=== PATIENT | male | born 1980 | race African-American/Black ===

== ENCOUNTER 2023-04-30 18:03 | Outpatient (CLI) | payer BC, SELFPAY | END 2023-04-30 18:04 | disposition home or self-care (01) | LOC: AMB 05-01 17:27 | PROVIDERS: Visit Provider Family Medicine | DX: R07.89 Other chest pain (principal) | CPT/HCPCS: A0425; A0427 ==

== ENCOUNTER 2023-04-30 18:43 | Emergency (ER) | payer BC, SELFPAY ==
[2023-04-30] VITALS (23 sets, daily range): BP systolic 115–139; BP diastolic 64–86; PULSE 72–96; RESP 16; TEMP 36.3; O2SAT 98–100; BMI 17.7
--- NOTE | 2023-04-30 18:49 | CRLHL7_ITS ---
For Patients: As a result of the Cures Act, medical imaging exams and procedure reports are released immediately into your electronic medical record. You may view this report before your referring provider. If you have questions, please contact your health care provider. INDICATION: Chest pain. TECHNIQUE: Chest 2 views. COMPARISON: None. FINDINGS: Cardiovascular and mediastinum: Cardiomediastinal silhouette is within normal limits Lungs and pleural spaces: Lungs are clear. No sign of pleural effusion. No pneumothorax. Bones and soft tissues: No significant findings. IMPRESSION: No acute or significant findings. Dictated by Geri Akbar MD @ 04/30/2023 8:35:19 PM (Electronically Signed)
--- NOTE | 2023-04-30 18:57 | ED_ITS ---
HPI - Chest Pain General Date Seen: 04/30/23 <Charly Ramos DO - Last Filed: 04/30/23 20:21> Chief Complaint: Chest Pain <Charly Ramos DO - Last Filed: 04/30/23 20:21> Stated Complaint: chest pain <Charly Ramos DO - Last Filed: 04/30/23 20:21> Time Seen by Provider: 04/30/23 18:43 <Charly Ramos DO - Last Filed: 04/30/23 20:21> Source: patient <Chalry Ramos DO - Last Filed: 04/30/23 20:21> Mode of arrival: EMS <Charly Ramos - Last Filed: 04/30/23 20:21> Limitations: no limitations <Charly Ramos DO - Last Filed: 04/30/23 20:21> History of Present Illness HPI narrative: Patient is a 42-year-old male with no pertinent medical problems presenting to emergency department for chest pain. He states the pain started last night and has been consistent in nature. States it is a pressure and tight sensation in his left chest region that does not radiate. Has never had pain like this before. Denies any history of heart disease. Is currently a smoker and smokes about half a pack per day since he was 19. Denies fevers, chills, shortness of breath, dyspnea, abdominal pain, headache lightheadedness, dizziness, fevers, chills. This at home with his brother and mother but denies do them being sick. He is not aware of any sick contacts. Denies any history of cancer, blood clots, recent surgery or trauma. EMS states his vitals were stable for them throughout transfer. He did take a baby aspirin before he came to the emergency department. He is not on any scheduled medications. No other concerns noted at this time <Charly Ramos - Last Filed: 04/30/23 20:21> Related Data Home Medications: Home Medications Medication Instructions Recorded Confirmed No Known Home Medications 04/30/23 04/30/23 <Charly Aniya Ramos DO - Last Filed: 04/30/23 20:21> Allergies/Adverse Reactions: Allergies Allergy/AdvReac Type Severity Reaction Status Date / Time bananas Allergy Unknown Uncoded 04/30/23 18:53 grapes Allergy Unknown Uncoded 04/30/23 18:53 <Charly Ramos DO - Last Filed: 04/30/23 20:21> Review of Systems Status of ROS Reports: 10 or more systems reviewed and unremarkable except as noted in History and below <Charly Ramos DO - Last Filed: 04/30/23 20:21> PFSH PFS Social History: Social History Smoking Status: Current every day smoker What tobacco products do you use: cigarettes Smoking packs per day: 0.5 Smoking cigarettes per day: 10.0 Years smoked: 23 Smoking pack-years: 11.50 How often do you have a drink containing alcohol: monthly or less AUDIT-C Alcohol total score: 1 Non-prescribed substance use: denies use <Charly Ramos DO - Last Filed: 04/30/23 20:21> Exam Narrative Exam Narrative: Const: Well-nourished, Well-developed, in mild distress Eyes: PERRL, no conjunctival injection, and symmetrical lids HENT: Atraumatic external nose and ears. Moist mucous membranes. Neck: Symmetric, trachea midline, No thyromegaly. CVS: RRR, No murmurs or gallops. Peripheral pulses 2+ and equal in all extremities RESP: Unlabored respiratory effort. Clear to auscultation bilaterally. GI: Nontender/Nondistended, No rebound or guarding. MSK:Extremities w/o deformity, Normal Active ROM, no tenderness to palpation of the chest Skin: Warm, Dry. No rashes or lesions. Neuro: Normal Muscle tone, No focal neurological deficits. Psych: Awake, Alert, & Oriented x3. Appropriate mood and affect. <Charly Ramos DO - Last Filed: 04/30/23 20:21> Const Vital Signs, click to edit/add: Vital Signs - 24 hr 04/30/23 18:53 04/30/23 18:53 04/30/23 19:00 Temperature 97.4 F L Pulse Rate 82 86 Pulse Rate [Pulse Oximeter] 94 Respiratory Rate 16 Blood Pressure Blood Pressure [Right Upper Arm] 118/64 Pulse Oximetry 98 98 98 Oxygen Delivery Method Room Air 04/30/23 19:08 04/30/23 19:15 04/30/23 19:22 Temperature Pulse Rate 91 87 87 Pulse Rate [Pulse Oximeter] Respiratory Rate Blood Pressure 116/76 139/79 Blood Pressure [Right Upper Arm] Pulse Oximetry 99 98 98 Oxygen Delivery Method 04/30/23 19:23 04/30/23 19:30 04/30/23 19:42 Temperature Pulse Rate 92 89 86 Pulse Rate [Pulse Oximeter] Respiratory Rate Blood Pressure 120/79 Blood Pressure [Right Upper Arm] Pulse Oximetry 99 98 98 Oxygen Delivery Method 04/30/23 19:45 04/30/23 20:00 04/30/23 20:01 Temperature Pulse Rate 92 96 86 Pulse Rate [Pulse Oximeter] Respiratory Rate Blood Pressure 115/77 Blood Pressure [Right Upper Arm] Pulse Oximetry 98 98 98 Oxygen Delivery Method 04/30/23 20:15 04/30/23 20:22 04/30/23 20:23 Temperature Pulse Rate 92 91 88 Pulse Rate [Pulse Oximeter] Respiratory Rate Blood Pressure 124/81 Blood Pressure [Right Upper Arm] Pulse Oximetry 99 99 99 Oxygen Delivery Method 04/30/23 20:30 04/30/23 20:53 04/30/23 21:00 Temperature Pulse Rate 91 79 73 Pulse Rate [Pulse Oximeter] Respiratory Rate Blood Pressure Blood Pressure [Right Upper Arm] Pulse Oximetry 100 99 99 Oxygen Delivery Method 04/30/23 21:01 04/30/23 21:15 04/30/23 21:23 Temperature Pulse Rate 73 81 72 Pulse Rate [Pulse Oximeter] Respiratory Rate Blood Pressure 117/79 122/73 Blood Pressure [Right Upper Arm] Pulse Oximetry 99 99 100 Oxygen Delivery Method 04/30/23 21:30 Temperature Pulse Rate 78 Pulse Rate [Pulse Oximeter] Respiratory Rate Blood Pressure Blood Pressure [Right Upper Arm] Pulse Oximetry 99 Oxygen Delivery Method <Charly Ramos, DO - Last Filed: 04/30/23 20:21> Vital Signs - 24 hr 04/30/23 18:53 04/30/23 18:53 04/30/23 19:00 Temperature 97.4 F L Pulse Rate 82 86 Pulse Rate [Pulse Oximeter] 94 Respiratory Rate 16 Blood Pressure Blood Pressure [Right Upper Arm] 118/64 Pulse Oximetry 98 98 98 Oxygen Delivery Method Room Air 04/30/23 19:08 04/30/23 19:15 04/30/23 19:22 Temperature Pulse Rate 91 87 87 Pulse Rate [Pulse Oximeter] Respiratory Rate Blood Pressure 116/76 139/79 Blood Pressure [Right Upper Arm] Pulse Oximetry 99 98 98 Oxygen Delivery Method 04/30/23 19:23 04/30/23 19:30 04/30/23 19:42 Temperature Pulse Rate 92 89 86 Pulse Rate [Pulse Oximeter] Respiratory Rate Blood Pressure 120/79 Blood Pressure [Right Upper Arm] Pulse Oximetry 99 98 98 Oxygen Delivery Method 04/30/23 19:45 04/30/23 20:00 04/30/23 20:01 Temperature Pulse Rate 92 96 86 Pulse Rate [Pulse Oximeter] Respiratory Rate Blood Pressure 115/77 Blood Pressure [Right Upper Arm] Pulse Oximetry 98 98 98 Oxygen Delivery Method 04/30/23 20:15 04/30/23 20:22 04/30/23 20:23 Temperature Pulse Rate 92 91 88 Pulse Rate [Pulse Oximeter] Respiratory Rate Blood Pressure 124/81 Blood Pressure [Right Upper Arm] Pulse Oximetry 99 99 99 Oxygen Delivery Method 04/30/23 20:30 04/30/23 20:53 04/30/23 21:00 Temperature Pulse Rate 91 79 73 Pulse Rate [Pulse Oximeter] Respiratory Rate Blood Pressure Blood Pressure [Right Upper Arm] Pulse Oximetry 100 99 99 Oxygen Delivery Method 04/30/23 21:01 04/30/23 21:15 04/30/23 21:23 Temperature Pulse Rate 73 81 72 Pulse Rate [Pulse Oximeter] Respiratory Rate Blood Pressure 117/79 122/73 Blood Pressure [Right Upper Arm] Pulse Oximetry 99 99 100 Oxygen Delivery Method 04/30/23 21:30 Temperature Pulse Rate 78 Pulse Rate [Pulse Oximeter] Respiratory Rate Blood Pressure Blood Pressure [Right Upper Arm] Pulse Oximetry 99 Oxygen Delivery Method <David Edwards MD - Last Filed: 04/30/23 21:39> Course Reevaluation(s) Time of Reevaluation #1: 21:38 <David Edwards MD - Last Filed: 04/30/23 21:39> Reevaluation #1: Repeat troponin is negative. Patient recheck. Complains of left-sided chest pain that is constant say yesterday worse with arm movement of the arm. Symptoms are most consistent with musculoskeletal pain, EKG reassuring, chest x- ray negative, patient is stable for discharge <David Edwards MD - Last Filed: 04/30/23 21:39> Vital Signs Vital signs: Initial Vital Signs Temperature 97.4 F L 04/30/23 18:53 Temperature Source Temporal Artery Scan 04/30/23 18:53 Pulse Rate 82 04/30/23 18:53 Pulse Rhythm Regular 04/30/23 18:53 Respiratory Rate 16 04/30/23 18:53 Blood Pressure 118/64 04/30/23 18:53 Blood Pressure Mean 82 04/30/23 18:53 Blood Pressure Position Sitting 04/30/23 18:53 Pulse Oximetry 98 04/30/23 18:53 Oxygen Delivery Method Room Air 04/30/23 18:53 Vital Signs Temperature 97.4 F L 04/30/23 18:53 Pulse Rate 82 04/30/23 18:53 Respiratory Rate 16 04/30/23 18:53 Blood Pressure 118/64 04/30/23 18:53 Pulse Oximetry 98 04/30/23 18:53 Oxygen Delivery Method Room Air 04/30/23 18:53 Temperature 97.4 F L 04/30/23 18:53 Pulse Rate 78 04/30/23 21:30 Respiratory Rate 16 04/30/23 18:53 Blood Pressure 122/73 04/30/23 21:23 Pulse Oximetry 99 04/30/23 21:30 Oxygen Delivery Method Room Air 04/30/23 18:53 <Charly Ramos DO - Last Filed: 04/30/23 20:21> Initial Vital Signs Temperature 97.4 F L 04/30/23 18:53 Temperature Source Temporal Artery Scan 04/30/23 18:53 Pulse Rate 82 04/30/23 18:53 Pulse Rhythm Regular 04/30/23 18:53 Respiratory Rate 16 04/30/23 18:53 Blood Pressure 118/64 04/30/23 18:53 Blood Pressure Mean 82 04/30/23 18:53 Blood Pressure Position Sitting 04/30/23 18:53 Pulse Oximetry 98 04/30/23 18:53 Oxygen Delivery Method Room Air 04/30/23 18:53 Vital Signs Temperature 97.4 F L 04/30/23 18:53 Pulse Rate 82 04/30/23 18:53 Respiratory Rate 16 04/30/23 18:53 Blood Pressure 118/64 04/30/23 18:53 Pulse Oximetry 98 04/30/23 18:53 Oxygen Delivery Method Room Air 04/30/23 18:53 Temperature 97.4 F L 04/30/23 18:53 Pulse Rate 78 04/30/23 21:30 Respiratory Rate 16 04/30/23 18:53 Blood Pressure 122/73 04/30/23 21:23 Pulse Oximetry 99 04/30/23 21:30 Oxygen Delivery Method Room Air 04/30/23 18:53 <David Edwards MD - Last Filed: 04/30/23 21:39> Medications Administered Medications: Discontinued Medications Generic Name Dose Route Start Last Admin Trade Name Freq PRN Reason Stop Dose Admin Aspirin 243 mg 04/30/23 18:51 04/30/23 19:06 Aspirin 81 Mg Tab.Chew PO 04/30/23 18:52 243 mg ONCE ONE Administration <Charly Ramos DO - Last Filed: 04/30/23 20:21> Discontinued Medications Generic Name Dose Route Start Last Admin Trade Name Freq PRN Reason Stop Dose Admin Aspirin 243 mg 04/30/23 18:51 04/30/23 19:06 Aspirin 81 Mg Tab.Chew PO 04/30/23 18:52 243 mg ONCE ONE Administration <David Edwards MD - Last Filed: 04/30/23 21:39> MDM - Chest Pain MDM Narrative Medical decision making narrative: Patient is a 42-year-old male presenting to the emergency department for left-sided chest pain. Pain started last night and has continued to show a today. Has described it as a tightness sensation that does not radiate. His heart score is 1. He he is PERC negative and PE seems unlikely at this time. Will order chest x-ray to look for signs of pneumonia or pneumothorax. Very unlikely to be her dissection this time concern is otherwise normal vital signs. EKG, troponin, CBC, CMP, ago was has flu/RSV ordered. Patient was given aspirin to get to the full 324. EKG shows what appears to be benign early repolarization otherwise no concerning findings. Initial troponin was 0. CBC and CMP showed no concerning findings. COVID social flu/RSV test were negative. Will repeat his troponin in 2 hours. Patient is signed out to my colleague Dr. Edwards. <Charly Ramos, DO - Last Filed: 04/30/23 20:21> Lab Data Labs: Lab Results 04/30/23 04/30/23 Range/Units 19:02 21:16 WBC 6.45 (4.50-11.00) K/uL RBC 5.70 (4.30-5.90) m/uL Hgb 16.3 (13.5-17.5) gm/dL Hct 48.8 (37.0-53.0) % MCV 86 (80-100) fL MCH 29 (26-34) pg MCHC 33 (32-36) gm/dL RDW Coeff of Leslie 14.1 (11.5-15.5) % Plt Count 289 (140-440) K/uL Neut % (Auto) 71.0 (42.0-72.0) % Lymph % (Auto) 21.2 (20-44) % [place] % (Auto) 5.9 (0.0-11.0) % Eos % (Auto) 1.2 (0.0-7.0) % Baso % (Auto) 0.5 (0.0-3.0) % Neut # (Auto) 4.58 (1.7-7.0) K/uL Lymph # (Auto) 1.37 (0.90-2.90) K/uL [place] # (Auto) 0.40 (0.00-0.90) K/UL Eos # (Auto) 0.08 (0.00-0.50) K/uL Baso # (Auto) 0.03 (0.00-0.30) K/uL Abs Immat Gran (auto) 0.01 (0.00-0.30) K/uL Imm/Tot Granulo (auto) 0.2 % Sodium 138 (135-149) mmol/L Potassium 3.8 (3.6-5.1) mmol/L Chloride 103 (96-114) mmol/L Carbon Dioxide 29 (20-32) mmol/L Anion Gap 6 L (7-15) mEq/L BUN 8 (5-24) mg/dL Creatinine 1.1 (0.5-1.5) mg/dL Estimated Creat Clear 68.04 Estimated GFR 86 ml/min Glucose 96 (60-115) mg/dL Calcium 9.0 (8.4-10.6) mg/dL Total Bilirubin 0.3 (0.1-1.5) mg/dL AST 29 (12-35) U/L ALT 16 (4-50) U/L Alkaline Phosphatase 48 (40-150) U/L Troponin I < 0.01 L (0.01-0.04) ng/mL Total Protein 7.8 (6.0-8.3) g/dL Albumin 4.3 (3.3-5.0) g/dL SARS-CoV-2 (PCR) Negative SARS-CoV-2 (Negative) Influenza Type A (PCR) Negative PCR FLU A (Negative) Influenza Type B (PCR) Negative PCR FLU B (Negative) RSV (PCR) Negative PCR RSV (Negative) POC Troponin I 0.00 L 0.00 L (0.01-0.04) ng/ml <Charly Ramos, DO - Last Filed: 04/30/23 20:21> Lab Results 04/30/23 04/30/23 Range/Units 19:02 21:16 WBC 6.45 (4.50-11.00) K/uL RBC 5.70 (4.30-5.90) m/uL Hgb 16.3 (13.5-17.5) gm/dL Hct 48.8 (37.0-53.0) % MCV 86 (80-100) fL MCH 29 (26-34) pg MCHC 33 (32-36) gm/dL RDW Coeff of Leslie 14.1 (11.5-15.5) % Plt Count 289 (140-440) K/uL Neut % (Auto) 71.0 (42.0-72.0) % Lymph % (Auto) 21.2 (20-44) % [place] % (Auto) 5.9 (0.0-11.0) % Eos % (Auto) 1.2 (0.0-7.0) % Baso % (Auto) 0.5 (0.0-3.0) % Neut # (Auto) 4.58 (1.7-7.0) K/uL Lymph # (Auto) 1.37 (0.90-2.90) K/uL [place] # (Auto) 0.40 (0.00-0.90) K/UL Eos # (Auto) 0.08 (0.00-0.50) K/uL Baso # (Auto) 0.03 (0.00-0.30) K/uL Abs Immat Gran (auto) 0.01 (0.00-0.30) K/uL Imm/Tot Granulo (auto) 0.2 % Sodium 138 (135-149) mmol/L Potassium 3.8 (3.6-5.1) mmol/L Chloride 103 (96-114) mmol/L Carbon Dioxide 29 (20-32) mmol/L Anion Gap 6 L (7-15) mEq/L BUN 8 (5-24) mg/dL Creatinine 1.1 (0.5-1.5) mg/dL Estimated Creat Clear 68.04 Estimated GFR 86 ml/min Glucose 96 (60-115) mg/dL Calcium 9.0 (8.4-10.6) mg/dL Total Bilirubin 0.3 (0.1-1.5) mg/dL AST 29 (12-35) U/L ALT 16 (4-50) U/L Alkaline Phosphatase 48 (40-150) U/L Troponin I < 0.01 L (0.01-0.04) ng/mL Total Protein 7.8 (6.0-8.3) g/dL Albumin 4.3 (3.3-5.0) g/dL SARS-CoV-2 (PCR) Negative SARS-CoV-2 (Negative) Influenza Type A (PCR) Negative PCR FLU A (Negative) Influenza Type B (PCR) Negative PCR FLU B (Negative) RSV (PCR) Negative PCR RSV (Negative) POC Troponin I 0.00 L 0.00 L (0.01-0.04) ng/ml <David Edwards MD - Last Filed: 04/30/23 21:39> ECG Data Attestation: I personally reviewed and interpreted this ECG as follows: <Charly Ramos DO - Last Filed: 04/30/23 20:21> Prior ECG tracings: not available for review <Charly Ramos DO - Last Filed: 04/30/23 20:21> Interpretation: Normal sinus rhythm with rate of 82 beats per minute, normal glucose, normal axis, no T-wave abnormalities. Does appear to have benign early re polarization seen in lead V2. <Charly Ramos - Last Filed: 04/30/23 20:21> Discharge Plan Discharge Clinical Impression: Atypical chest pain <Charly Ramos - Last Filed: 04/30/23 20:21> Patient Disposition: Home, Self-Care <Charly Ramos - Last Filed: 04/30/23 20:21> Condition: Stable <Charly Ramos - Last Filed: 04/30/23 20:21> Instructions: Noncardiac Chest Pain (ED) <Charly Ramos - Last Filed: 04/30/23 20:21> Additional Instructions: Follow-up with the primary care provider symptoms persist. Return to emergency department for new or worsening symptoms <Charly Ramos - Last Filed: 04/30/23 20:21> Prescriptions: No Action No Known Home Medications <Charly Ramos Last Filed: 04/30/23 20:21> Follow Up/Referrals: Provider,Not a Local [Primary Care Provider] - <Charly Ramos Last Filed: 04/30/23 20:21> Stand Alone Forms: MyHealth Info Instructions <Charly Ramos - Last Filed: 04/30/23 20:21>
[2023-04-30] MEDS: ASPIRIN 81 MG TAB.CHEW 243 MG PO (19:06)
[2023-04-30 19:08] LABS: Basophils Absolute Auto 0.03 K/uL (0.00-0.30); Basophils Percent Auto 0.5 % (0.0-3.0); Eosinophils Absolute Auto 0.08 K/uL (0.00-0.50); Eosinophils Percent Auto 1.2 % (0.0-7.0); Hematocrit 48.8 % (37.0-53.0); Hemoglobin* 16.3 gm/dL (13.5-17.5); Immature Granulocytes Abs Auto 0.01 K/uL (0.00-0.30); Immature Granulocytes Pct Auto 0.2 %; Lymphocytes Absolute Auto 1.37 K/uL (0.90-2.90); Lymphocytes Percent Auto 21.2 % (20-44); Mean Corpuscular HGB Conc 33 gm/dL (32-36); Mean Corpuscular Hemoglobin 29 pg (26-34); Mean Corpuscular Volume 86 fL (80-100); Monocytes Percent Auto 5.9 % (0.0-11.0); Neutrophils Absolute Auto 4.58 K/uL (1.7-7.0); Platelet Count* 289 K/uL (140-440); RDW Coefficient of Variation % 14.1 % (11.5-15.5); White Blood Count* 6.45 K/uL (4.50-11.00)
[2023-04-30 19:12] LABS: Slide Review Reflex No
[2023-04-30 19:38] LABS: Albumin* 4.3 g/dL (3.3-5.0); Chloride* 103 mmol/L (96-114); Potassium* 3.8 mmol/L (3.6-5.1); Sodium* 138 mmol/L (135-149)
[2023-04-30 19:40] LABS: Creatinine* 1.1 mg/dL (0.5-1.5); Est. Creatinine Clearance* 68.04; Estimated Glomerular Filt Rate 86 ml/min
[2023-04-30 19:41] LABS: Alanine Aminotransferase* 16 U/L (4-50); Alkaline Phosphatase* 48 U/L (40-150); Anion Gap 6 mEq/L (7-15); Aspartate Amino Transferase* 29 U/L (12-35); Bilirubin Total* 0.3 mg/dL (0.1-1.5); Blood Urea Nitrogen* 8 mg/dL (5-24); Carbon Dioxide* 29 mmol/L (20-32); Glucose* 96 mg/dL (60-115); Total Protein* 7.8 g/dL (6.0-8.3)
[2023-04-30 19:46] LABS: PCR FLU A Negative PCR FLU A (Negative); PCR FLU B Negative PCR FLU B (Negative); PCR RSV Negative PCR RSV (Negative); SARS PCR* Negative SARS-CoV-2 (Negative)
[2023-04-30 20:14] LABS: Troponin I* < 0.01 ng/mL (0.01-0.04)
== END 2023-04-30 22:10 | disposition home or self-care (01) ==
PROVIDERS: Family Medicine; Emergency Provider Student in an Organized Health Care Education/Training Program
DX: R07.9 Chest pain, unspecified (principal)
CPT/HCPCS: 36415; 71046; 80053; 84484; 85025; 87631; 93005; 99283; 99284; A9270